=== PATIENT | female | born 1965 | race American Indian/Alaskan Native ===

== ENCOUNTER 2016-05-13 09:53 | Day surgery (SDC) | payer MEDICAID ==
[~2016-05-13 09:53] MED LIST: WATER FOR IRRIG STERILE IR ONE
[2016-05-13] MEDS ORDERED: WATER FOR IRRIG STERILE IR ONE (10:17)
[2016-05-13] MEDS ORDERED: DIPRIVAN 10 MG/ML IV ONE ×4 (10:53→11:42)
[2016-05-13] MEDS ORDERED: XYLOCAINE 2% INFILTRATI ONE (10:53)
--- NOTE | 2016-05-13 10:54 | Anesthesia Consultation ---
Anesthesia Consult and Med Hx Date of service: 05/13/16 - Airway Anesthetic Teeth Evaluation: Edentulous ROM Head & Neck: Adequate Mental/Hyoid Distance: Adequate Mallampati Class: Class II Intubation Access Assessment: Good - Pulmonary Exam CTA: Yes - Cardiac Exam Cardiac Exam: RRR - Pre-Operative Health Status ASA Pre-Surgery Classification: ASA3 Proposed Anesthetic Plan: MAC - Pulmonary Hx Smoking: Yes (1 ppd "all my life") COPD: Yes (presently breathing at baseline) - Cardiovascular System Hx Hypertension: Yes - Central Nervous System Hx Psychiatric Problems: Yes
--- NOTE | 2016-05-13 10:55 | Anesthesia Day of Surgery ---
Anesthesia Day of Surgery - Day of Surgery Patient Examined: Yes Patient H&P Reviewed: Yes Patient is NPO: Yes Beta Blockers: Yes (took atenolol today)
[2016-05-13] MEDS ORDERED: NACL 0.9% 1000 ML 1,000 ML IV SCH (11:00)
--- NOTE | 2016-05-13 12:17 | Operative Report ---
Operative Report Operative Report: Date of procedure: 05/13/2015 Procedure: Colonoscopy with multiple hot biopsy polypectomies, multiple polyp ablations. Attending physician: Mike Arteaga MD Dairy Equipment Mechanic: Mike Arteaga MD Indication: Patient is a 51-year-old female who is referred for colorectal cancer screening. A colonoscopy is done to assess patient so that treatment may be directed based on the findings. Consent: Informed consent was obtained after advising the patient and family regarding nature of this procedure, its indications, potential benefits as well as possible complications including but not limited to bleeding perforation and adverse reaction to medication, infection as well as other cardiopulmonary complications. An informed written and verbal consent was then obtained after due opportunity was provided for questions and answers. Monitoring: Patient was monitored continuously with pulse oximetry and electrocardiographic recordings as well as blood pressure recordings. Vital signs remained stable throughout this procedure with no untoward events. Preoperative assessment: Patient was assessed immediately prior to this procedure for capacity to tolerate monitored anesthesia care and moderate sedation as well as general anesthesia. Patient's ASA classification is 2, Mallampati class is 2, Hyomental distance is 3. Instrument: [employer] videocolonoscope Medications: Propofol given intravenously in divided doses for details please refer to anesthesia records. Description of procedure: Patient was placed in the left lateral decubitus position after achieving sedation, a digital rectal examination was performed following which the colonoscope was introduced into the anal verge and advanced to the cecum which was identified by the cecal valve, the appendiceal orifice, as well as by the cecal strap and direct transillumination. The colonoscope was subsequently withdrawn with careful inspection of all mucosal surfaces. Patient tolerated this procedure well and was subsequently taken to the recovery room. The following findings were noted. Findings: The colon was very tortuous. There was scattered thick liquid densely adherent stool seen in various sections of the colon including the cecum ascending colon, transverse colon and descending colon. This along with the tortuosity of the colon, made the procedure to become technically difficult and prolonged. Beginning in the rectum, there were 2 rectal polyps that were flat each measuring approximately 6 mm. Both polyps removed by cold biopsy polypectomy and retrieved. Base of the polyps was ablated. There was an adjoining flat diminutive polyp that was also ablated. In the sigmoid colon, patient had a flat 6-8 mm polyp that was removed by hot biopsy polypectomy and retrieved. There is also a diminutive adjacent polyp that was removed by polyp ablation. In the transverse colon, there were 2 polyps one measured approximate 6-8 mm was sessile was removed by hot biopsy polypectomy and retrieved. Another polyp measuring approximately 6 mm was removed by hot biopsy polypectomy. In the ascending colon there was a 4 mm polyp that was removed by hot biopsy polypectomy and retrieved it was sessile. The ileocecal valve there was a diminutive polyp that was ablated. There was an adjoining sessile polyps measured approximate 4 mm was my hot biopsy polypectomy and retrieved. The cecum was full of stool but otherwise did not appear to have any other polyps or lesions. The ileocecal valve was bulbous and lipomatous in appearance. The rest of the colon was normal. On the retroflex examination at the anal verge, patient had internal hemorrhoids. Impression: Tortuosity of the colon Multiple colon polyps status post hot biopsy polypectomy and ablation Internal hemorrhoids Retained stool. Plan: Follow pathology report High-fiber diet Repeat colonoscopy within 1 year given the tortuosity of the colon, the presence of multiple polyps, and the presence of substantial retained stool with poor colonoscopic preparation overall.
--- NOTE | 2016-05-13 12:18 | Discharge Summary ---
Short Stay Discharge Plan Activity: advance as tolerated Weight Bearing Status: Weight Bear as Tolerated Diet: regular (patient to follow-up in 2 weeks)
[2016-05-13 12:22] VITALS: BP 129/86
--- NOTE | 2016-05-13 12:53 | Post Anesthesia Evaluation ---
- Post Anesthesia Evaluation Patient Participated: Yes Airway Patent: Yes Stable Respiratory Function: Yes Nausea/Vomiting: No Temp > 96.8F: Yes Pain Manageable: Yes Adequeate Hydration: Yes Anesthesia Complications: No
== END 2016-05-13 09:54 | disposition home or self-care (01) ==
LOC: GIO 09:53
PROVIDERS: ATTEND Internal Medicine Gastroenterology
DX: Z12.11 Encounter for screening for malignant neoplasm of colon (principal); K62.1 Rectal polyp; K63.5 Polyp of colon; K64.8 Other hemorrhoids; D12.2 Benign neoplasm of ascending colon; D12.0 Benign neoplasm of cecum; D12.3 Benign neoplasm of transverse colon; K63.89 Other specified diseases of intestine; F20.0 Paranoid schizophrenia; F41.9 Anxiety disorder, unspecified; J44.9 Chronic obstructive pulmonary disease, unspecified; M19.90 Unspecified osteoarthritis, unspecified site; I10 Essential (primary) hypertension; F17.210 Nicotine dependence, cigarettes, uncomplicated; F32.9 Major depressive disorder, single episode, unspecified; Z72.89 Other problems related to lifestyle; Z80.0 Family history of malignant neoplasm of digestive organs; Z82.49 Family history of ischemic heart disease and other diseases of the circulatory system
CPT/HCPCS: 45380; 45384; 45388; 88305; J2704; J7030

== ENCOUNTER 2018-05-22 10:00 | Inpatient (IN) | payer MEDICAID ==
[2018-05-22] MEDS ORDERED: ROBAXIN PO PRN (11:38)
[2018-05-22] MEDS ORDERED: VISTARIL IM PRN (11:38)
[2018-05-22] MEDS ORDERED: REQUIP PO PRN (11:38)
--- NOTE | 2018-05-22 11:38 | History and Physical Report ---
History of Present Illness Chief complaint: Im not feeling well History of present illness: 53 YO Female with HTN, DM, HLD, Nicotine Dependence, Cocaine Dependence presents for evaluation. Pt states that she uses cocaine daily and is trying to quit over the past several days. Pt acknowledges agitation, nausea. muscle cramping, irritability, anxiety, abdominal cramping, insomnia, nasal congestion, appetite loss, diaphoresis, racing thoughts, tremors, and generalized weakness. Pt found to have symptoms consistent with Cocaine withdrawl. Pt admitted to [facility] for medical stabilization. Past History Past Medical History: diabetes, hypertension, hyperlipidemia Past Surgical History: No surgical history, Other (reviewed) Social history: single Family history: no significant family history (reviewed) Medications and Allergies Allergies Allergy/AdvReac Type Severity Reaction Status Date / Time No Known Allergies Allergy Verified 05/12/16 14:55 Home Medications Medication Instructions Recorded Confirmed Last Taken Type Atenolol 50 mg PO DAILY 05/13/16 05/22/18 05/13/16 History Lisinopril 10 mg PO DAILY 05/13/16 05/22/18 05/13/16 History QUEtiapine 300 mg PO HS 05/13/16 05/22/18 05/12/16 History amLODIPine 10 mg PO DAILY 05/13/16 05/22/18 05/13/16 History Atrovent HFA 17MCG/PUFF 17 mcg PO PRN PRN 05/22/18 05/22/18 Unknown History Gemfibrozil 600 mg PO BID 05/22/18 05/22/18 Unknown History Metformin HCl 850 mg PO BID 05/22/18 05/22/18 Unknown History Review of Systems Constitutional: no weight loss, no weight gain, no fever, no chills Ears, nose, mouth and throat: nasal congestion, no ear pain, no tinnitis, no decreased hearing Breasts: no change in shape, no swelling, no mass Cardiovascular: no chest pain, no orthopnea, no palpitations, no rapid/irregular heart beat Respiratory: no cough, no cough with sputum, no excessive sputum, no hemoptysis Gastrointestinal: vomiting, change in bowel habits, no hematemesis, no coffee ground emesis, no excessive gas, no jaundice Genitourinary Female: no pelvic pain, no flank pain, no menorrhagia Rectal: no pain, no incontinence, no bleeding Musculoskeletal: no neck stiffness, no neck pain, no shooting arm pain, no arm numbness/tingling, no low back pain Integumentary: no rash, no pruritis, no redness, no sores, no wounds Neurological: no paralysis, no weakness, no parathesias, no numbness, no tingling Psychiatric: anxiety, change in sleep habits, sleep disturbances, insomnia, change in appetite, anxiety attacks, difficulties concentrating, confusion, irritability, sadness/tearfullness Endocrine: no cold intolerance, no heat intolerance, no polyphagia, no excessive thirst Hematologic/Lymphatic: no easy bruising, no easy bleeding, no lymphadenopathy Allergic/Immunologic: no urticaria, no allergic rhinitis, no wheezing Exam - Constitutional General appearance: Present: mild distress, disheveled - EENT Eyes: Present: PERRL ENT: hearing intact, clear oral mucosa - Neck Neck: Present: supple, normal ROM - Respiratory Respiratory effort: normal Respiratory: bilateral: CTA - Cardiovascular Heart Sounds: Present: S1 & S2. Absent: rub, click - Extremities Extremities: pulses symmetrical, No edema Peripheral Pulses: within normal limits - Abdominal General gastrointestinal: Present: soft, non-tender, non-distended, normal bowel sounds Female genitourinary: Present: normal - Integumentary Integumentary: Present: clear, warm, dry - Musculoskeletal Musculoskeletal: gait normal, strength equal bilaterally - Psychiatric Psychiatric: appropriate mood/affect, intact judgment & insight - Neurologic Neurologic: CNII-XII intact, moves all extremities Results - Labs CBC & Chem 7: 05/22/18 12:30 05/22/18 12:30 Assessment and Plan - Patient Problems (1) Cocaine dependence with withdrawal Current Visit: Yes Status: Acute Plan to address problem: Admit to [facility], Cocaine withdrawl protocol, CBC, CMP, Urinalysis, UDS, IVF resuscitation therapy, anti emetic therapy, (2) Nicotine dependence unspecified, with withdrawal Current Visit: Yes Status: Acute Qualifiers: Nicotine product type: cigarettes Qualified Code(s): F17.213 - Nicotine dependence, cigarettes, with withdrawal Plan to address problem: Smoking cessatioin counseling, supportive care. (3) HTN (hypertension) Current Visit: Yes Status: Acute Qualifiers: Hypertension type: essential hypertension Qualified Code(s): I10 - Essential (primary) hypertension Plan to address problem: Monitor BP q shift, continue medical management (4) Diabetes Current Visit: Yes Status: Acute Plan to address problem: ADA diet, insulin, accu check (5) DVT prophylaxis Current Visit: Yes Status: Acute Plan to address problem: SCD to BLE while in bed.
[2018-05-22] MEDS ORDERED: TYLENOL PO PRN (11:40)
[2018-05-22] MEDS ORDERED: ATIVAN IV ONE (11:40)
[2018-05-22 12:55] LABS: Hematocrit 39.8 % (30.3-42.9); Hemoglobin 13.5 gm/dl (10.1-14.3); Mean Corpuscular HGB Conc 34 % (30-34); Mean Corpuscular Volume 97 fl (79-97); Platelet Count 258 K/mm3 (140-440); Red Blood Count 4.12 M/mm3 (3.65-5.03); Red Cell Distribution Width 14.7 % (13.2-15.2)
[2018-05-22 13:07] LABS: BUN/Creatinine Ratio 15; Blood Urea Nitrogen 12 mg/dL (7-17); Calcium 8.9 mg/dL (8.4-10.2); Hemolysis Index 8
[2018-05-22] MEDS: CATAPRES PO SCH ×3 (13:41→20:42)
[2018-05-22 14:12] LABS: Alanine Aminotransferase 11 units/L (7-56); Albumin 4.1 g/dL (3.9-5)
[2018-05-22] MEDS: ATIVAN PO SCH ×3 (16:33→20:42)
[2018-05-22 16:38] LABS: Bilirubin,Urine NEG (Negative); Blood,Urine NEG (Negative); Color,Urine Yellow (Yellow); Protein,Urine <15 mg/dL mg/dL (Negative); RBC,Urine < 1.0 /HPF (0.0-6.0)
[2018-05-22 16:51] LABS: Amphetamine Screen,Urine PRESUMPTIVE NEGATIVE; Benzodiazepines Screen,Urine PRESUMPTIVE NEGATIVE; Cannabinoid Screen,Urine PRESUMPTIVE NEGATIVE; Methadone Screen,Urine PRESUMPTIVE NEGATIVE; Opiate Screen,Urine PRESUMPTIVE NEGATIVE
[2018-05-22 17:11] LABS: Cocaine Screen,Urine PRESUMPTIVE POSITIVE
[2018-05-22] MEDS ORDERED: QUETIAPINE 300 MG PO SCH (22:00)
[2018-05-23] MEDS: CATAPRES PO SCH ×6 (00:08→20:16)
[2018-05-23] MEDS: ATIVAN PO SCH ×3 (00:08→08:47)
[2018-05-23] MEDS ORDERED: NACL 0.45% 1,000 ML IV SCH (02:00)
[2018-05-23] MEDS: NACL 0.45% 1000 ML 1,000 ML IV SCH ×2 (02:56→23:09)
[2018-05-23] MEDS: FOLVITE PO SCH ×2 (08:39→10:00)
[2018-05-23] MEDS: THERAGRAN Tab PO SCH ×2 (08:39→10:00)
[2018-05-23] MEDS: ZESTRIL PO SCH ×2 (08:40→10:00)
[2018-05-23] MEDS: NORVASC PO SCH ×2 (08:41→10:00)
[2018-05-23] MEDS: TENORMIN PO SCH ×2 (08:41→10:00)
[2018-05-23] MEDS: VITAMIN B-1 PO SCH ×2 (08:47→10:00)
[2018-05-23] MEDS ORDERED: NON-FORMULARY (Atenolol 50 MG) PO SCH (10:00)
[2018-05-23] MEDS ORDERED: NON-FORMULARY (Amlodipine 10 MG) PO SCH (10:00)
[2018-05-23] MEDS ORDERED: NON-FORMULARY (Lisinopril 5 MG) PO SCH (10:00)
--- NOTE | 2018-05-23 16:24 | Progress Note ---
Assessment and Plan Assessment and plan: Patient is a 53 yo Black Woman with a history of HTN, DM, HLD, Nicotine Dependence and Cocaine Dependence who presented as a Direct Admission to the [facility] for medical stabilization from Cocaine. Pt states that she uses cocaine daily and is trying to quit over the past several days. Pt acknowledges lindsey tation, nausea. muscle cramping, irritability, anxiety, abdominal cramping, insomnia, nasal congestion, appetite loss, diaphoresis, racing thoughts, tremors, and generalized weakness. Pt found to have symptoms consistent with Cocaine withdrawl. Pt admitted to [facility] for medical stabilization. (1) Cocaine dependence with withdrawal Current Visit: Yes Status: Acute Plan to address problem: Admit to [facility], Cocaine withdrawl protocol, CBC, CMP, Urinalysis, UDS, IVF resuscitation therapy, anti emetic therapy, (2) Nicotine dependence unspecified, with withdrawal Current Visit: Yes Status: Acute Qualifiers: Nicotine product type: cigarettes Qualified Code(s): F17.213 - Nicotine dep endence, cigarettes, with withdrawal Plan to address problem: Smoking cessatioin counseling, supportive care. (3) HTN (hypertension) Current Visit: Yes Status: Acute Qualifiers: Hypertension type: essential hypertension Qualified Code(s): I10 - Essential (primary) hypertension Plan to address problem: Monitor BP q shift, continue medical management (4) Diabetes Current Visit: Yes Status: Acute Plan to address problem: ADA diet, insulin, accu check (5) DVT prophylaxis Current Visit: Yes Status: Acute Plan to address problem: SCD to BLE while in bed. History Interval history: Patient was seen and examined. Follow-up on current diagnosis of cocaine withdrawal. Overnight uneventful. Patient denies any chest pain, shortness breath, nausea/vomiting or severe headaches. Imaging, nursing note, chart, labs and old chart reviewed. Discussed with patient. The right forearm peripheral line is swollen and hurting, looks infiltrated, I have asked the nurse Sheila to change it. Hospitalist Physical - Physical exam Narrative exam: Gen: WDWN, NAD, Awake, Alert, Orientated HEENT: NCAT, EOMI, PERRL, OP Clear Neck: supple, no adenopathy, no thyromegaly, no JVD CVS/Heart: RRR, normal S1S2, pulses present bilaterally Chest/Lungs: CTA B, Symmetrical chest expansion, good air entry bilaterally GI/Abdomen: soft, NTND, good bowel sounds, no guarding or rebound /Bladder: no suprapubic tenderness, no CVA or paraspinal tenderness Extermity/Skin: no c/c, no obvious rash, right forearm puffy with iv line site MSK: FROM x 4 Neuro: CN 2-12 grossly intact, no new focal deficits Psych: calm - Constitutional Vitals: Temp Pulse Resp BP Pulse Ox 98.0 F 68 20 153/91 96 05/23/18 16:04 05/23/18 16:04 05/23/18 16:04 05/23/18 16:04 05/23/18 16:04 General appearance: Present: mild distress, disheveled Results - Labs CBC & Chem 7: 05/22/18 12:30 05/22/18 12:30 Labs: Laboratory Last Values WBC 5.3 K/mm3 (4.5-11.0) 05/22/18 12:30 RBC 4.12 M/mm3 (3.65-5.03) 05/22/18 12:30 Hgb 13.5 gm/dl (10.1-14.3) 05/22/18 12:30 Hct 39.8 % (30.3-42.9) 05/22/18 12:30 MCV 97 fl (79-97) 05/22/18 12:30 MCH 33 pg (28-32) H 05/22/18 12:30 MCHC 34 % (30-34) 05/22/18 12:30 RDW 14.7 % (13.2-15.2) 05/22/18 12:30 Plt Count 258 K/mm3 (140-440) 05/22/18 12:30 Sodium 140 mmol/L (137-145) 05/22/18 12:30 Potassium 3.9 mmol/L (3.6-5.0) 05/22/18 12:30 Chloride 100.0 mmol/L (98-107) 05/22/18 12:30 Carbon Dioxide 30 mmol/L (22-30) 05/22/18 12:30 Anion Gap 14 mmol/L 05/22/18 12:30 BUN 12 mg/dL (7-17) 05/22/18 12:30 Creatinine 0.8 mg/dL (0.7-1.2) 05/22/18 12:30 Estimated GFR > 60 ml/min 05/22/18 12:30 BUN/Creatinine Ratio 15 % 05/22/18 12:30 Glucose 86 mg/dL (65-100) 05/22/18 12:30 POC Glucose 112 (70-105) H 05/23/18 16:08 Calcium 8.9 mg/dL (8.4-10.2) 05/22/18 12:30 Total Bilirubin 0.30 mg/dL (0.1-1.2) 05/22/18 12:30 AST 14 units/L (5-40) 05/22/18 12:30 ALT 11 units/L (7-56) 05/22/18 12:30 Alkaline Phosphatase 89 units/L (35-129) 05/22/18 12:30 Total Protein 6.9 g/dL (6.3-8.2) 05/22/18 12:30 Albumin 4.1 g/dL (3.9-5) 05/22/18 12:30 Albumin/Globulin Ratio 1.5 % 05/22/18 12:30 Urine Color Yellow (Yellow) 05/22/18 16:18 Urine Turbidity Clear (Clear) 05/22/18 16:18 Urine pH 6.0 (5.0-7.0) 05/22/18 16:18 Ur Specific [place] 1.014 (1.003-1.030) 05/22/18 16:18 Urine Protein <15 mg/dl mg/dL (Negative) 05/22/18 16:18 Urine Glucose (UA) Neg mg/dL (Negative) 05/22/18 16:18 Urine Ketones Neg mg/dL (Negative) 05/22/18 16:18 Urine Blood Neg (Negative) 05/22/18 16:18 Urine Nitrite Neg (Negative) 05/22/18 16:18 Urine Bilirubin Neg (Negative) 05/22/18 16:18 Urine Urobilinogen 2.0 mg/dL (<2.0) 05/22/18 16:18 Ur Leukocyte Esterase Neg (Negative) 05/22/18 16:18 Urine WBC (Auto) 1.0 /HPF (0.0-6.0) 05/22/18 16:18 Urine RBC (Auto) < 1.0 /HPF (0.0-6.0) 05/22/18 16:18 U Epithel Cells (Auto) 1.0 /HPF (0-13.0) 05/22/18 16:18 Urine Opiates Screen Presumptive negative 05/22/18 16:18 Urine Methadone Screen Presumptive negative 05/22/18 16:18 Ur Barbiturates Screen Presumptive negative 05/22/18 16:18 Ur Phencyclidine Scrn Presumptive negative 05/22/18 16:18 Ur Amphetamines Screen Presumptive negative 05/22/18 16:18 U Benzodiazepines Scrn Presumptive negative 05/22/18 16:18 Urine Cocaine Screen Presumptive positive 05/22/18 16:18 U Marijuana (THC) Screen Presumptive negative 05/22/18 16:18 Drugs of Abuse Note Disclamer 05/22/18 16:18 Plasma/Serum Alcohol < 0.01 % (0-0.07) 05/22/18 12:30
[2018-05-24] MEDS: CATAPRES PO SCH ×6 (00:38→20:07)
[2018-05-24] MEDS: VITAMIN B-1 PO SCH (09:11)
[2018-05-24] MEDS: FOLVITE PO SCH (09:11)
[2018-05-24] MEDS: THERAGRAN Tab PO SCH (09:11)
[2018-05-24] MEDS: ZESTRIL PO SCH (09:11)
[2018-05-24] MEDS: NORVASC PO SCH (09:12)
[2018-05-24] MEDS: TENORMIN PO SCH (09:12)
[2018-05-24] MEDS: VISTARIL PO PRN ×2 (14:32→20:07)
[2018-05-24] MEDS ORDERED: APRESOLINE IV PRN (14:55)
--- NOTE | 2018-05-24 14:59 | Progress Note ---
Assessment and Plan Assessment and plan: Patient is a 53 yo Black Woman with a history of HTN, DM, HLD, Nicotine Dependence and Cocaine Dependence who presented as a Direct Admission to the [facility] for medical stabilization from Cocaine. Pt states that she uses cocaine daily and is trying to quit over the past several days. Pt acknowledges lindsey tation, nausea. muscle cramping, irritability, anxiety, abdominal cramping, insomnia, nasal congestion, appetite loss, diaphoresis, racing thoughts, tremors, and generalized weakness. Pt found to have symptoms consistent with Cocaine withdrawl. Pt admitted to [facility] for medical stabilization. Cocaine dependence with withdrawal: Cocaine withdrawl protocol, CBC, CMP, Urinalysis, UDS, IVF resuscitation therapy, anti emetic therapy, Nicotine dependence unspecified, with withdrawal: Smoking cessatioin counseling, supportive care. HTN (hypertension) with urgency: Monitor BP q shift, continue medical management, start iv hydralazine Diabetes mellitus type 2: ADA diet, insulin, accu check DVT prophylaxis reviewed new issue: chest pain, get EKG and cardiac enzymes. History Interval history: Patient was seen and examined. Follow-up on current diagnosis of cocaine withdrawal. Overnight uneventful. Patient denies any shortness breath, nausea/vomiting or severe headaches. Imaging, nursing note, chart, labs and old chart reviewed. Discussed with patient. The right forearm peripheral line is swollen and hurting, looks infiltrated, I have asked the nurse Sheila to change it==>she changed the IVF but left the other IV in. Patient complaining of chest pains but not earlier. Hospitalist Physical - Physical exam Narrative exam: Gen: WDWN, NAD, Awake, Alert, Orientated HEENT: NCAT, EOMI, PERRL, OP Clear Neck: supple, no adenopathy, no thyromegaly, no JVD CVS/Heart: RRR, normal S1S2, pulses present bilaterally Chest/Lungs: CTA B, Symmetrical chest expansion, good air entry bilaterally GI/Abdomen: soft, NTND, good bowel sounds, no guarding or rebound /Bladder: no suprapubic tenderness, no CVA or paraspinal tenderness Extermity/Skin: no c/c, no obvious rash, right forearm puffy with iv line site MSK: FROM x 4 Neuro: CN 2-12 grossly intact, no new focal deficits Psych: calm - Constitutional Vitals: Temp Pulse Resp BP Pulse Ox 99.3 F 64 18 171/93 93 05/24/18 12:18 05/24/18 14:31 05/24/18 12:18 05/24/18 14:31 05/24/18 12:18 General appearance: Present: disheveled Results - Labs CBC & Chem 7: 05/22/18 12:30 05/22/18 12:30 Labs: Laboratory Last Values WBC 5.3 K/mm3 (4.5-11.0) 05/22/18 12:30 RBC 4.12 M/mm3 (3.65-5.03) 05/22/18 12:30 Hgb 13.5 gm/dl (10.1-14.3) 05/22/18 12:30 Hct 39.8 % (30.3-42.9) 05/22/18 12:30 MCV 97 fl (79-97) 05/22/18 12:30 MCH 33 pg (28-32) H 05/22/18 12:30 MCHC 34 % (30-34) 05/22/18 12:30 RDW 14.7 % (13.2-15.2) 05/22/18 12:30 Plt Count 258 K/mm3 (140-440) 05/22/18 12:30 Sodium 140 mmol/L (137-145) 05/22/18 12:30 Potassium 3.9 mmol/L (3.6-5.0) 05/22/18 12:30 Chloride 100.0 mmol/L (98-107) 05/22/18 12:30 Carbon Dioxide 30 mmol/L (22-30) 05/22/18 12:30 Anion Gap 14 mmol/L 05/22/18 12:30 BUN 12 mg/dL (7-17) 05/22/18 12:30 Creatinine 0.8 mg/dL (0.7-1.2) 05/22/18 12:30 Estimated GFR > 60 ml/min 05/22/18 12:30 BUN/Creatinine Ratio 15 % 05/22/18 12:30 Glucose 86 mg/dL (65-100) 05/22/18 12:30 POC Glucose 103 (70-105) 05/24/18 11:47 Calcium 8.9 mg/dL (8.4-10.2) 05/22/18 12:30 Total Bilirubin 0.30 mg/dL (0.1-1.2) 05/22/18 12:30 AST 14 units/L (5-40) 05/22/18 12:30 ALT 11 units/L (7-56) 05/22/18 12:30 Alkaline Phosphatase 89 units/L (35-129) 05/22/18 12:30 Total Protein 6.9 g/dL (6.3-8.2) 05/22/18 12:30 Albumin 4.1 g/dL (3.9-5) 05/22/18 12:30 Albumin/Globulin Ratio 1.5 % 05/22/18 12:30 Urine Color Yellow (Yellow) 05/22/18 16:18 Urine Turbidity Clear (Clear) 05/22/18 16:18 Urine pH 6.0 (5.0-7.0) 05/22/18 16:18 Ur Specific [place] 1.014 (1.003-1.030) 05/22/18 16:18 Urine Protein <15 mg/dl mg/dL (Negative) 05/22/18 16:18 Urine Glucose (UA) Neg mg/dL (Negative) 05/22/18 16:18 Urine Ketones Neg mg/dL (Negative) 05/22/18 16:18 Urine Blood Neg (Negative) 05/22/18 16:18 Urine Nitrite Neg (Negative) 05/22/18 16:18 Urine Bilirubin Neg (Negative) 05/22/18 16:18 Urine Urobilinogen 2.0 mg/dL (<2.0) 05/22/18 16:18 Ur Leukocyte Esterase Neg (Negative) 05/22/18 16:18 Urine WBC (Auto) 1.0 /HPF (0.0-6.0) 05/22/18 16:18 Urine RBC (Auto) < 1.0 /HPF (0.0-6.0) 05/22/18 16:18 U Epithel Cells (Auto) 1.0 /HPF (0-13.0) 05/22/18 16:18 Urine Opiates Screen Presumptive negative 05/22/18 16:18 Urine Methadone Screen Presumptive negative 05/22/18 16:18 Ur Barbiturates Screen Presumptive negative 05/22/18 16:18 Ur Phencyclidine Scrn Presumptive negative 05/22/18 16:18 Ur Amphetamines Screen Presumptive negative 05/22/18 16:18 U Benzodiazepines Scrn Presumptive negative 05/22/18 16:18 Urine Cocaine Screen Presumptive positive 05/22/18 16:18 U Marijuana (THC) Screen Presumptive negative 05/22/18 16:18 Drugs of Abuse Note Disclamer 05/22/18 16:18 Plasma/Serum Alcohol < 0.01 % (0-0.07) 05/22/18 12:30
[2018-05-24] MEDS: PROVENTIL IH PRN (21:21)
[2018-05-25] MEDS: CATAPRES PO SCH ×6 (00:18→21:26)
[2018-05-25 05:42] LABS: Hematocrit 40.7 % (30.3-42.9); Hemoglobin 13.9 gm/dl (10.1-14.3); Mean Corpuscular HGB Conc 34 % (30-34); Mean Corpuscular Volume 95 fl (79-97); Platelet Count 272 K/mm3 (140-440); Red Blood Count 4.27 M/mm3 (3.65-5.03); Red Cell Distribution Width 14.6 % (13.2-15.2)
[2018-05-25 05:58] LABS: BUN/Creatinine Ratio 20; Blood Urea Nitrogen 16 mg/dL (7-17); Calcium 9.5 mg/dL (8.4-10.2); Hemolysis Index 9
[2018-05-25] MEDS: FOLVITE PO SCH (09:59)
[2018-05-25] MEDS: VITAMIN B-1 PO SCH (09:59)
[2018-05-25] MEDS: ZESTRIL PO SCH (09:59)
[2018-05-25] MEDS: THERAGRAN Tab PO SCH (09:59)
[2018-05-25] MEDS: TENORMIN PO SCH (10:03)
[2018-05-25] MEDS: NORVASC PO SCH (10:04)
[2018-05-25] MEDS: PROVENTIL IH PRN (13:32)
--- NOTE | 2018-05-25 16:34 | Progress Note ---
Assessment and Plan Assessment and plan: Patient is a 53 yo Black Woman with a history of HTN, DM, HLD, Nicotine Dependence and Cocaine Dependence who presented as a Direct Admission to the [facility] for medical stabilization from Cocaine. Pt states that she uses cocaine daily and is trying to quit over the past several days. Pt acknowledges lindsey tation, nausea. muscle cramping, irritability, anxiety, abdominal cramping, insomnia, nasal congestion, appetite loss, diaphoresis, racing thoughts, tremors, and generalized weakness. Pt found to have symptoms consistent with Cocaine withdrawl. Pt admitted to [facility] for medical stabilization. Cocaine dependence with withdrawal: Cocaine withdrawl protocol done Nicotine dependence unspecified, with withdrawal: Smoking cessatioin counseling, supportive care. HTN (hypertension) with urgency: Monitor BP q shift, continue medical management, start iv hydralazine Diabetes mellitus type 2: ADA diet, insulin, accu check DVT prophylaxis reviewed new issue: chest pain, get EKG and cardiac enzymes==> abnormal EKG, hold discharge, get stress test in am History Interval history: Patient was seen and examined. Follow-up on current diagnosis of cocaine withdrawal. Overnight eventful as she developed chest pain, substernal, pressure like, lasting 10minutes nonradiating, no aggravating factors or relieving factor. EKG done which which was abnormal, ?inferior q waves, prolonged pr interval. Pt denies any cad, heart problems. Patient denies any shortness breath, nausea/vomiting or severe headaches. Imaging, nursing note, chart, labs and old chart reviewed. Discussed with patient. Hospitalist Physical - Physical exam Narrative exam: Gen: WDWN, NAD, Awake, Alert, Orientated HEENT: NCAT, EOMI, PERRL, OP Clear Neck: supple, no adenopathy, no thyromegaly, no JVD CVS/Heart: RRR, normal S1S2, pulses present bilaterally Chest/Lungs: CTA B, Symmetrical chest expansion, good air entry bilaterally GI/Abdomen: soft, NTND, good bowel sounds, no guarding or rebound /Bladder: no suprapubic tenderness, no CVA or paraspinal tenderness Extermity/Skin: no c/c, no obvious rash, right forearm puffy with iv line site MSK: FROM x 4 Neuro: CN 2-12 grossly intact, no new focal deficits Psych: calm - Constitutional Vitals: Temp Pulse Resp BP Pulse Ox 98.8 F 60 18 146/83 96 05/25/18 11:30 05/25/18 11:30 05/25/18 11:30 05/25/18 13:20 05/25/18 11:30 General appearance: Present: disheveled Results - Labs CBC & Chem 7: 05/25/18 05:24 05/25/18 01:15 Labs: Laboratory Last Values WBC 5.2 K/mm3 (4.5-11.0) 05/25/18 05:24 RBC 4.27 M/mm3 (3.65-5.03) 05/25/18 05:24 Hgb 13.9 gm/dl (10.1-14.3) 05/25/18 05:24 Hct 40.7 % (30.3-42.9) 05/25/18 05:24 MCV 95 fl (79-97) 05/25/18 05:24 MCH 33 pg (28-32) H 05/25/18 05:24 MCHC 34 % (30-34) 05/25/18 05:24 RDW 14.6 % (13.2-15.2) 05/25/18 05:24 Plt Count 272 K/mm3 (140-440) 05/25/18 05:24 Sodium 143 mmol/L (137-145) 05/25/18 01:15 Potassium 3.7 mmol/L (3.6-5.0) 05/25/18 01:15 Chloride 98.2 mmol/L (98-107) 05/25/18 01:15 Carbon Dioxide 31 mmol/L (22-30) H 05/25/18 01:15 Anion Gap 18 mmol/L 05/25/18 01:15 BUN 16 mg/dL (7-17) 05/25/18 01:15 Creatinine 0.8 mg/dL (0.7-1.2) 05/25/18 01:15 Estimated GFR > 60 ml/min 05/25/18 01:15 BUN/Creatinine Ratio 20 % 05/25/18 01:15 Glucose 100 mg/dL (65-100) 05/25/18 01:15 POC Glucose 94 (70-105) 05/25/18 11:34 Calcium 9.5 mg/dL (8.4-10.2) 05/25/18 01:15 Total Bilirubin 0.30 mg/dL (0.1-1.2) 05/22/18 12:30 AST 14 units/L (5-40) 05/22/18 12:30 ALT 11 units/L (7-56) 05/22/18 12:30 Alkaline Phosphatase 89 units/L (35-129) 05/22/18 12:30 Troponin T < 0.010 ng/mL (0.00-0.029) 05/25/18 00:15 Total Protein 6.9 g/dL (6.3-8.2) 05/22/18 12:30 Albumin 4.1 g/dL (3.9-5) 05/22/18 12:30 Albumin/Globulin Ratio 1.5 % 05/22/18 12:30 Urine Color Yellow (Yellow) 05/22/18 16:18 Urine Turbidity Clear (Clear) 05/22/18 16:18 Urine pH 6.0 (5.0-7.0) 05/22/18 16:18 Ur Specific [place] 1.014 (1.003-1.030) 05/22/18 16:18 Urine Protein <15 mg/dl mg/dL (Negative) 05/22/18 16:18 Urine Glucose (UA) Neg mg/dL (Negative) 05/22/18 16:18 Urine Ketones Neg mg/dL (Negative) 05/22/18 16:18 Urine Blood Neg (Negative) 05/22/18 16:18 Urine Nitrite Neg (Negative) 05/22/18 16:18 Urine Bilirubin Neg (Negative) 05/22/18 16:18 Urine Urobilinogen 2.0 mg/dL (<2.0) 05/22/18 16:18 Ur Leukocyte Esterase Neg (Negative) 05/22/18 16:18 Urine WBC (Auto) 1.0 /HPF (0.0-6.0) 05/22/18 16:18 Urine RBC (Auto) < 1.0 /HPF (0.0-6.0) 05/22/18 16:18 U Epithel Cells (Auto) 1.0 /HPF (0-13.0) 05/22/18 16:18 Urine Opiates Screen Presumptive negative 05/22/18 16:18 Urine Methadone Screen Presumptive negative 05/22/18 16:18 Ur Barbiturates Screen Presumptive negative 05/22/18 16:18 Ur Phencyclidine Scrn Presumptive negative 05/22/18 16:18 Ur Amphetamines Screen Presumptive negative 05/22/18 16:18 U Benzodiazepines Scrn Presumptive negative 05/22/18 16:18 Urine Cocaine Screen Presumptive positive 05/22/18 16:18 U Marijuana (THC) Screen Presumptive negative 05/22/18 16:18 Drugs of Abuse Note Disclamer 05/22/18 16:18 Plasma/Serum Alcohol < 0.01 % (0-0.07) 05/22/18 12:30
[2018-05-26] MEDS: CATAPRES PO SCH ×3 (00:57→08:00)
[2018-05-26 08:49] VITALS: BP 139/74
[2018-05-26] MEDS: FOLVITE PO SCH (09:57)
[2018-05-26] MEDS: NORVASC PO SCH (09:57)
[2018-05-26] MEDS: VITAMIN B-1 PO SCH (09:57)
[2018-05-26] MEDS: THERAGRAN Tab PO SCH (09:58)
[2018-05-26] MEDS: TENORMIN PO SCH (09:58)
[2018-05-26] MEDS: ZESTRIL PO SCH (09:59)
--- NOTE | 2018-05-26 11:08 | Discharge Summary ---
Providers - Providers Date of Admission: 05/22/18 12:12 Date of discharge: 05/26/18 Attending physician: DARLENE CABRERA Primary care physician: JOSE ALEJANDRO MEJÍA MD Hospitalization Condition: Stable Hospital course: Patient is a 53 yo Black Woman with a history of HTN, DM, HLD, Nicotine Dependence and Cocaine Dependence who presented as a Direct Admission to the [facility] for medical stabilization from Cocaine. Pt states that she uses cocaine daily and is trying to quit over the past several days. Pt acknowledges agitation, nausea. muscle cramping, irritability, anxiety, abdominal cramping, insomnia, nasal congestion, appetite loss, diaphoresis, racing thoughts, tremors, and generalized weakness. Pt found to have symptoms consistent with Cocaine withdrawl. Pt admitted to [facility] for medical stabilization. -Cocaine dependence with withdrawal: Cocaine withdrawl protocol done -Chest pains, atypical, psychosomatic due to withdrawal symptoms most likely, refused stress testing due to clastrophobia and refuses excerise stress, she wants to go home, I sat down and explained risk and benefits, she voiced understanding. She says she is paranoid schizophrenia and being around things makes her nerves, she denies si/hi or hallucinations at present. -Nicotine dependence unspecified, with withdrawal: Smoking cessatioin counseling, supportive care. 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, she voice understanding and agreement Disposition: DC-01 TO HOME OR SELFCARE Time spent for discharge: 32 minutes Core Measure Documentation - Palliative Care Palliative Care/ Comfort Measures: Not Applicable - Core Measures Any of the following diagnoses?: none - VTE Discharge Requirements Deep Vein Thrombosis/Pulmonary Embolism Present on Admission: No Has pt received <5 days of overlap therapy or INR<2.0: No Anticoagulant overlap therapy prescribed at discharge: No Contraindication No Overlap Therapy order at DC: Not Indicated Exam - Physical Exam Narrative exam: Gen: WDWN, NAD, Awake, Alert, Orientated HEENT: NCAT, EOMI, PERRL, OP Clear Neck: supple, no adenopathy, no thyromegaly, no JVD CVS/Heart: RRR, normal S1S2, pulses present bilaterally Chest/Lungs: CTA B, Symmetrical chest expansion, good air entry bilaterally GI/Abdomen: soft, NTND, good bowel sounds, no guarding or rebound /Bladder: no suprapubic tenderness, no CVA or paraspinal tenderness Extermity/Skin: no c/c, no obvious rash, right forearm puffy with iv line site MSK: FROM x 4 Neuro: CN 2-12 grossly intact, no new focal deficits Psych: calm - Constitutional Vitals: Temp Pulse Resp BP Pulse Ox 98.0 F 67 22 139/74 98 05/26/18 08:06 05/26/18 10:00 05/26/18 10:00 05/26/18 09:59 05/26/18 10:00 Plan Activity: other (no stenous activity unless cleared by Cardiology) Diet: low salt, diabetic Special Instructions: smoking cessation Follow up with: GUILLERMINA LIMA MD [Staff Physician] - 7 Days ROSANA MEJÍA MD [Staff Physician] - 7 Days SALMA KEENAN [Staff Physician] - 7 Days Prescriptions: Albuterol Sulfate [Ventolin HFA] 2 puff IH Q4H PRN #1 [email or web address] PRN Reason: Shortness Of Breath amLODIPine 10 mg PO DAILY #30 Atrovent HFA 17MCG/PUFF 17 mcg PO PRN PRN #30 PRN Reason: Wheezing Folic Acid [Folvite] 1 mg PO QDAY #30 tablet Lisinopril 10 mg PO DAILY #30 QUEtiapine 300 mg PO HS #30 Thiamine [Vitamin B-1] 100 mg PO QDAY #30 tablet
== END 2018-05-26 11:35 | disposition home or self-care (01) | DRG 305 ==
LOC: 3A 10:00 → UNDOADMIN 10:00 → MSU 12:12
PROVIDERS: ADMIT Internal Medicine; ATTEND Internal Medicine
DX: I16.0 Hypertensive urgency (principal); F14.23 Cocaine dependence with withdrawal; I10 Essential (primary) hypertension; E11.9 Type 2 diabetes mellitus without complications; F17.213 Nicotine dependence, cigarettes, with withdrawal; F41.9 Anxiety disorder, unspecified; F20.0 Paranoid schizophrenia; R94.31 Abnormal electrocardiogram [ECG] [EKG]; R07.89 Other chest pain; Z71.6 Tobacco abuse counseling; Z79.4 Long term (current) use of insulin; Z79.899 Other long term (current) drug therapy
CPT/HCPCS: 36415; 80048; 80053; 80307; 80320; 81001; 82962; 84484; 85027; 93005; 93010; 94640; 99406; G0378; G0480; J2060; J3410; J7030; Q0177